=== PATIENT | male | born 1960 | race Caucasian/White ===

== ENCOUNTER 2020-09-29 18:49 | Emergency (ER) | payer BC ==
[~2020-09-29] VITALS: Ht 172.7 cm; Wt 78.2 kg
[2020-09-29] MEDS ORDERED: PROZAC10 MG PO (19:40)
[2020-09-29] MEDS ORDERED: AMBIEN5 MG PO (19:41)
[2020-09-29] MEDS ORDERED: ZYLOPRIM300 MG PO (19:42)
[2020-09-29 20:00] VITALS: BP 113/70
== END 2020-09-29 20:02 | disposition home or self-care (01) | DRG 206 ==
LOC: ED 18:49
DX: J95.03 Malfunction of tracheostomy stoma (principal); F41.9 Anxiety disorder, unspecified; S09.93XD Unspecified injury of face, subsequent encounter; V89.2XXD Person injured in unspecified motor-vehicle accident, traffic, subsequent encounter; Y83.3 Surgical operation with formation of external stoma as the cause of abnormal reaction of the patient, or of later complication, without mention of misadventure at the time of the procedure